=== PATIENT | female | born 1980 | race Caucasian/White ===

== ENCOUNTER 2017-09-23 14:35 | Emergency (ER) | payer MEDICAID ==
[~2017-09-23] VITALS: Ht 170.2 cm; Wt 93.0 kg
[2017-09-23 14:53] VITALS: BP 144/79; PULSE 127; RESP 20; O2SAT 97
[2017-09-23 15:09] VITALS: BP 144/79; PULSE 125; RESP 18; O2SAT 98
[2017-09-23] MEDS ORDERED: LORazepam 2 MG/ML VIAL IV PUSH ONE (15:15)
[2017-09-23] MEDS ORDERED: SODIUM CHLOR 0.9% 1000 ML INJ 1,000 ML IV ONE (15:15)
--- NOTE | 2017-09-23 15:16 | PD ---
HPI Chief Complaint: Chest Pain Time Seen by Provider: 15:06 Travel History International Travel<30 days: No Contact w/Intl Traveler<30days: No Traveled to known affect area: No History of Present Illness HPI 37-year-old female with PMH of anxiety presents to the ED via EMS for evaluation of 20 minute history of palpitations, shortness of breath. Onset while the patient was smoking a cigarette. Patient endorses accompanying nausea. She denies diaphoresis, chest pain. She states that she has otherwise been feeling well. She states that she took a dose of Seroquel about an hour before onset of symptoms. She states that she took this because she "wanted to take a nap while everyone was gone." She denies illicit drug use. Denies other stimulant use. Denies familial history of ND. PFSH Past Medical History Hx Anticoagulant Therapy: No Cardiovascular Problems: No Chemotherapy: No Cerebrovascular Accident: No Diabetes: No Respiratory: No ?: Not LMP: May 2017 Past Surgical History Hysterectomy: No Social History Tobacco Use: Yes Allergies-Medications (Allergen,Severity, Reaction): Coded Allergies: diphenhydramine (Verified Allergy, Unknown, 09/23/17) "feel skin crawling" Reported Meds & Prescriptions Reported Meds & Active Scripts Active Reported Suboxone Sublingual Film (Buprenorphine-Naloxone Sublingual Film) 8-2 Mg Film 1 Film SL Unique ID number required: Seroquel (Quetiapine Fumarate) 100 Mg Tab 300 Mg PO BID PRN Effexor XR 24 HR (Venlafaxine HCl) 150 Mg Cap 150 Mg PO DAILY Review of Systems Except as stated in HPI: all other systems reviewed are Neg Physical Exam Narrative GENERAL: Well-nourished, well-developed anxious white female no acute distress. SKIN: Focused skin assessment warm/dry. HEAD: Normocephalic. EYES: No scleral icterus. No injection or drainage. NECK: Supple, trachea midline. No JVD or lymphadenopathy. CARDIOVASCULAR: Tachycardic. Regular rate and rhythm without murmurs, gallops, or rubs. RESPIRATORY: Breath sounds clear and equal bilaterally. No accessory muscle use. GASTROINTESTINAL: Abdomen soft, non-tender, nondistended. Active bowel sounds. MUSCULOSKELETAL: No cyanosis, or edema. BACK: Nontender without obvious deformity. No CVA tenderness. Data Data Last Documented VS Vital Signs Date Time Temp Pulse Resp B/P (MAP) Pulse Ox O2 Delivery O2 Flow Rate FiO2 09/23/17 18:49 100 16 116/85 (95) 100 09/23/17 15:18 Room Air Orders Orders Electrocardiogram (09/23/17 15:06) Ckmb (Isoenzyme) Profile (09/23/17 15:06) Complete Blood Count With Diff (09/23/17 15:06) Comprehensive Metabolic Panel (09/23/17 15:06) Magnesium (Mg) (09/23/17 15:06) Prothrombin Time / Inr (Pt) (09/23/17 15:06) Act Partial Throm Time (Ptt) (09/23/17 15:06) Troponin I (09/23/17 15:06) Ecg Monitoring (09/23/17:) Bilateral Bp Monitoring (09/23/17 15:06) Iv Access Insert/Monitor (09/23/17 15:06) Oximetry (09/23/17 15:06) Chest, Pa & Lat (09/23/17 15:06) Drug Screen, Random Urine (09/23/17 15:06) Sodium Chlor 0.9% 1000 Ml Inj (Ns 1000 M (09/23/17 15:15) Lorazepam Inj (Ativan Inj) (09/23/17 15:15) Ed Urine Pregnancytest Poc (09/23/17 15:21) CKMB (09/23/17 15:15) CKMB% (09/23/17 15:15) Potassium Chloride (Kcl) (09/23/17 16:15) Calcium Carbonate (Oscal) (09/23/17 17:00) Ed Discharge Order (09/23/17 18:36) Labs Laboratory Tests Test 09/23/17 15:15 White Blood Count 7.4 TH/MM3 Red Blood Count 4.76 MIL/MM3 Hemoglobin 13.4 GM/DL Hematocrit 39.3 % Mean Corpuscular Volume 82.7 FL Mean Corpuscular Hemoglobin 28.1 PG Mean Corpuscular Hemoglobin Concent 33.9 % Red Cell Distribution Width 13.5 % Platelet Count 220 TH/MM3 Mean Platelet Volume 7.6 FL Neutrophils (%) (Auto) 58.1 % Lymphocytes (%) (Auto) 32.6 % Monocytes (%) (Auto) 7.3 % Eosinophils (%) (Auto) 1.3 % Basophils (%) (Auto) 0.7 % Neutrophils # (Auto) 4.3 TH/MM3 Lymphocytes # (Auto) 2.4 TH/MM3 Monocytes # (Auto) 0.5 TH/MM3 Eosinophils # (Auto) 0.1 TH/MM3 Basophils # (Auto) 0.1 TH/MM3 CBC Comment DIFF FINAL Differential Comment Prothrombin Time 9.4 SEC Prothromb Time International Ratio 0.9 RATIO Activated Partial Thromboplast Time 25.9 SEC Blood Urea Nitrogen 10 MG/DL Creatinine 0.92 MG/DL Random Glucose 184 MG/DL Total Protein 6.6 GM/DL Albumin 3.4 GM/DL Calcium Level 7.9 MG/DL Magnesium Level 1.9 MG/DL Alkaline Phosphatase 94 U/L Aspartate Amino Transf (AST/SGOT) 22 U/L Alanine Aminotransferase (ALT/SGPT) 29 U/L Total Bilirubin 0.2 MG/DL Sodium Level 140 MEQ/L Potassium Level 3.4 MEQ/L Chloride Level 106 MEQ/L Carbon Dioxide Level 24.3 MEQ/L Anion Gap 10 MEQ/L Estimat Glomerular Filtration Rate 68 ML/MIN Total Creatine Kinase 105 U/L Creatine Kinase MB 0.8 NG/ML Troponin I LESS THAN 0.02 NG/ML Urine Opiates Screen NEG Urine Barbiturates Screen NEG Urine Amphetamines Screen NEG Urine Benzodiazepines Screen NEG Urine Cocaine Screen NEG Urine Cannabinoids Screen NEG MDM Medical Decision Making Medical Screen Exam Complete: Yes Emergency Medical Condition: Yes Differential Diagnosis Anxiety versus ACS versus dysrhythmia versus PE versus other Narrative Course 37-year-old female with PMH of anxiety presents to the ED via EMS for evaluation of 20 minute history of palpitations, shortness of breath. Onset while the patient was smoking a cigarette. Patient endorses accompanying nausea. She denies diaphoresis, chest pain. She states that she has otherwise been feeling well. She states that she took a dose of Seroquel about an hour before onset of symptoms. She denies illicit drug use, stimulant use. Denies familial history of ND. Patient is tachycardic, anxious appearing on presentation. On exam the chest is clear, abdomen soft and nontender. No lower extremity edema. IV was established. Patient was administered 1 L normal saline, 1 g of Ativan. EKG rate 131, sinus tachycardia. AZ interval 144, QRS 82, QTC 462. Normal axis. No acute ST changes. Reviewed by Dr. Rust. CXR: Mild elevation of the right hemidiaphragm. Otherwise no acute cardiopulmonary process. CBC and coags unremarkable. Mild deficits of potassium and calcium on the CMP. This was replaced orally. Tox screen negative. Patient monitored in the ED for several hours. She reports resolution of her symptoms. Heart rate at 100. Dr. Rust discussed the workup and plan for discharge with the patient who is agreeable. She is instructed to follow-up with the primary care provider. She is stable and discharged home. Diagnosis Primary Impression: Palpitations Additional Impressions: Anxiety Hypocalcemia Hypokalemia Referrals: Primary Care Physician Patient Instructions: General Instructions, Heart Palpitations (ED) Additional Instructions: Rest, hydrate. Stop smoking! Eat a varied diet. Take a daily multivitamin. Resume at home medications as previously prescribed. Follow up with the primary care provider. Return to the ED for worsening symptoms or any urgent/ emergent medical condition. Disposition: 01 DISCHARGE HOME Condition: Stable Nichole Maynard September 23, 2017 15:16
[2017-09-23 15:18] VITALS: BP 133/63; PULSE 124; RESP 17; O2SAT 98
[2017-09-23 15:36] LABS: AUTOMATED NEUTROPHIL # 4.3 TH/MM3 (1.8-7.7); BASOPHIL # 0.1 TH/MM3 (0-0.2); BASOPHIL % 0.7 % (0.0-2.0); EOSINOPHIL # 0.1 TH/MM3 (0-0.4); EOSINOPHIL % 1.3 % (0.0-4.0); HEMATOCRIT 39.3 % (35.0-46.0); HEMOGLOBIN 13.4 GM/DL (11.6-15.3); LYMPH % 32.6 % (9.0-44.0); LYMPHOCYTE # 2.4 TH/MM3 (1.0-4.8); MEAN CELL VOLUME 82.7 FL (80.0-100.0); MEAN CORPUSCULAR HEMOGLOBIN 28.1 PG (27.0-34.0); MEAN CORPUSCULAR HGB CONC 33.9 % (32.0-36.0); MEAN PLATELET VOLUME 7.6 FL (7.0-11.0); MONO % 7.3 % (0.0-8.0); MONOCYTE # 0.5 TH/MM3 (0-0.9); NEUT % 58.1 % (16.0-70.0); PLATELET COUNT 220 TH/MM3 (150-450); RED BLOOD COUNT 4.76 MIL/MM3 (4.00-5.30); RED CELL DISTRIBUTION WIDTH 13.5 % (11.6-17.2); WHITE BLOOD COUNT 7.4 TH/MM3 (4.0-11.0)
[2017-09-23 15:47] LABS: INTERNATIONAL NORMALIZED RATIO 0.9 RATIO; PROTHROMBIN TIME - PATIENT 9.4 SEC (9.8-11.6)
[2017-09-23 15:49] LABS: ALBUMIN 3.4 GM/DL (3.4-5.0); AST (GOT) 22 U/L (15-37); BICARBONATE 24.3 MEQ/L (21.0-32.0); BLOOD UREA NITROGEN 10 MG/DL (7-18); CALCIUM 7.9 MG/DL (8.5-10.1); CHLORIDE 106 MEQ/L (98-107); CREATININE 0.92 MG/DL (0.50-1.00); GLOMERULAR FILTRATION RATE 68 ML/MIN (>89); GLUCOSE,RANDOM 184 MG/DL (74-106); MAGNESIUM 1.9 MG/DL (1.5-2.5); SODIUM (NA) 140 MEQ/L (136-145)
[2017-09-23 15:52] LABS: ALKALINE PHOSPHATASE 94 U/L (45-117); ALT (GPT) 29 U/L (10-53); TOTAL BILIRUBIN ADULT 0.2 MG/DL (0.2-1.0); TOTAL PROTEIN 6.6 GM/DL (6.4-8.2); TROPONIN I LESS THAN 0.02 NG/ML (0.02-0.05)
--- NOTE | 2017-09-23 16:00 | RADRPT ---
EXAM DATE/TIME: 09/23/2017 15:56 [facility] COMPARISON: No previous studies available for comparison. INDICATIONS : Chest pain. MEDICAL HISTORY : None. SURGICAL HISTORY : None. ENCOUNTER: Initial ACUITY: 1 day PAIN SCORE: 0/10 LOCATION: Bilateral chest FINDINGS: PA and lateral views of the chest demonstrate mild elevation of the right hemidiaphragm. Lungs are ot herwise clear. Heart size is normal. Surgical clips in the right upper abdominal quadrant are charact eristic of prior cholecystectomy. Osseous structures are intact. CONCLUSION: Mild elevation of the right hemidiaphragm. Otherwise, no acute cardiopulmonary process. Nicolas Mukherjee MD on September 23, 2017 at 15:56 Board Certified Radiologist. This report was verified electronically.
[2017-09-23] MEDS ORDERED: EFFE150C PO (16:09)
[2017-09-23] MEDS ORDERED: SERO100T PO (16:09)
[2017-09-23] MEDS ORDERED: SUBO8MIS SL (16:10)
[2017-09-23] MEDS ORDERED: POTASSIUM CHLORIDE 20 MEQ CONTROLLED RELEASE TAB PO ONE (16:15)
[2017-09-23 16:32] VITALS: BP 130/65; PULSE 108; RESP 16; O2SAT 96
[2017-09-23] MEDS ORDERED: CALCIUM CARBONATE 1.25 GM (CA 500 MG) TAB PO ONE (17:00)
--- NOTE | 2017-09-23 18:16 | PD ---
Data Data Last Documented VS Vital Signs Date Time Temp Pulse Resp B/P (MAP) Pulse Ox O2 Delivery O2 Flow Rate FiO2 09/23/17 16:32 108 16 130/65 (86) 96 09/23/17 15:18 Room Air Orders Orders Electrocardiogram (09/23/17 15:06) Ckmb (Isoenzyme) Profile (09/23/17 15:06) Complete Blood Count With Diff (09/23/17 15:06) Comprehensive Metabolic Panel (09/23/17 15:06) Magnesium (Mg) (09/23/17 15:06) Prothrombin Time / Inr (Pt) (09/23/17 15:06) Act Partial Throm Time (Ptt) (09/23/17 15:06) Troponin I (09/23/17 15:) Ecg Monitoring (09/23/17 15:06) Bilateral Bp Monitoring (09/23/17 15:06) Iv Access Insert/Monitor (09/23/17 15:06) Oximetry (09/23/17 15:06) Chest, Pa & Lat (09/23/17 15:06) Drug Screen, Random Urine (09/23/17 15:06) Sodium Chlor 0.9% 1000 Ml Inj (Ns 1000 M (09/23/17 15:15) Lorazepam Inj (Ativan Inj) (09/23/17 15:15) Ed Urine Pregnancytest Poc (09/23/17 15:21) CKMB (09/23/17 15:15) CKMB% (09/23/17 15:15) Potassium Chloride (Kcl) (09/23/17 16:15) Calcium Carbonate (Oscal) (09/23/17 17:00) Labs Laboratory Tests Test 09/23/17 15:15 White Blood Count 7.4 TH/MM3 Red Blood Count 4.76 MIL/MM3 Hemoglobin 13.4 GM/DL Hematocrit 39.3 % Mean Corpuscular Volume 82.7 FL Mean Corpuscular Hemoglobin 28.1 PG Mean Corpuscular Hemoglobin Concent 33.9 % Red Cell Distribution Width 13.5 % Platelet Count 220 TH/MM3 Mean Platelet Volume 7.6 FL Neutrophils (%) (Auto) 58.1 % Lymphocytes (%) (Auto) 32.6 % Monocytes (%) (Auto) 7.3 % Eosinophils (%) (Auto) 1.3 % Basophils (%) (Auto) 0.7 % Neutrophils # (Auto) 4.3 TH/MM3 Lymphocytes # (Auto) 2.4 TH/MM3 Monocytes # (Auto) 0.5 TH/MM3 Eosinophils # (Auto) 0.1 TH/MM3 Basophils # (Auto) 0.1 TH/MM3 CBC Comment DIFF FINAL Differential Comment Prothrombin Time 9.4 SEC Prothromb Time International Ratio 0.9 RATIO Activated Partial Thromboplast Time 25.9 SEC Blood Urea Nitrogen 10 MG/DL Creatinine 0.92 MG/DL Random Glucose 184 MG/DL Total Protein 6.6 GM/DL Albumin 3.4 GM/DL Calcium Level 7.9 MG/DL Magnesium Level 1.9 MG/DL Alkaline Phosphatase 94 U/L Aspartate Amino Transf (AST/SGOT) 22 U/L Alanine Aminotransferase (ALT/SGPT) 29 U/L Total Bilirubin 0.2 MG/DL Sodium Level 140 MEQ/L Potassium Level 3.4 MEQ/L Chloride Level 106 MEQ/L Carbon Dioxide Level 24.3 MEQ/L Anion Gap 10 MEQ/L Estimat Glomerular Filtration Rate 68 ML/MIN Total Creatine Kinase 105 U/L Creatine Kinase MB 0.8 NG/ML Troponin I LESS THAN 0.02 NG/ML Urine Opiates Screen NEG Urine Barbiturates Screen NEG Urine Amphetamines Screen NEG Urine Benzodiazepines Screen NEG Urine Cocaine Screen NEG Urine Cannabinoids Screen NEG MDM Supervised Visit with TAIWO: Yes Narrative Course I, Dr. Rust, have reviewed the advance practice practitioner's documentation and am in agreement, met with the patient face to face, made the diagnosis, and the medical decision making was done by me. *My assessment and Findings: Patient had some sinus tachycardia and palpitations. Not having actual chest pain. So far extensive workup is been negative. Her heart rate is down to 100. Anticipate discharge soon. Sekou Rust MD September 23, 2017 18:15
[2017-09-23 18:49] VITALS: BP 116/85
--- NOTE | 2017-09-24 18:33 | EKG ---
Date Performed: 09/23/2017 Time Performed: 15:02:10 PTAGE: 37 years EKG: SINUS TACHYCARDIA NONSPECIFIC ST & T-WAVE ABNORMALITY ABNORMAL RHYTHM ECG NO PREVIOUS TRACING DOCTOR: Arturo Howell Interpretating Date/Time 09/24/2017 18:31:40
== END 2017-09-23 19:52 | disposition home or self-care (01) ==
LOC: NEPC 14:35
DX: R00.0 Tachycardia, unspecified (principal); F41.9 Anxiety disorder, unspecified; E83.51 Hypocalcemia; E87.6 Hypokalemia; F17.210 Nicotine dependence, cigarettes, uncomplicated; Z79.899 Other long term (current) drug therapy
CPT/HCPCS: 71046; 80053; 80307; 82550; 82552; 83735; 84484; 84703; 85025; 85610; 85730; 93005; 96361; 96374; 99285; J2060; J7030

== ENCOUNTER 2017-10-24 20:03 | Emergency (ER) | payer MEDICAID ==
[~2017-10-24] VITALS: Ht 165.1 cm; Wt 72.0 kg
[~2017-10-24 20:03] MED LIST: EFFE150C PO; SERO100T PO; SUBO8MIS SL
[2017-10-24 20:38] VITALS: BP 137/68; PULSE 91; RESP 16; TEMP 98.1; O2SAT 98
[2017-10-24] MEDS ORDERED: LORazepam 2 MG/ML VIAL IV PUSH ONE (20:45)
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
[2017-10-24] MEDS ORDERED: VIST50CA PO (21:44)
== END 2017-10-24 21:54 | disposition home or self-care (01) ==
LOC: NEPD 20:03
DX: F41.0 Panic disorder [episodic paroxysmal anxiety] (principal); Z72.0 Tobacco use
CPT/HCPCS: 96374; 99284; J2060

== ENCOUNTER 2017-11-12 14:21 | Inpatient (IN) ==
[2017-11-12] MEDS ORDERED: HYDROmorphone PF Inj 2 MG/ML Vial ONE (23:00)
[2017-11-13] MEDS: Ketorolac Inj 30 MG/ML (IVP) Vial IV.PUSH SCH ×4 (02:52→20:24)
[2017-11-13] MEDS: Piperacil/Tazo 3.375 GM Premix 50 ML IV.SIG SCH ×5 (02:54→20:24)
[2017-11-13] MEDS: HYDROmorphone PF Inj 2 MG/ML Vial IV.PUSH PRN ×4 (03:33→22:04)
[2017-11-13] MEDS: Vancomycin Inj 1,000 MG in Sodium Chlor 0.9% Inj 250 ML IV.SIG SCH ×2 (03:34→16:17)
[2017-11-13] MEDS: Sod Chloride 0.9% Inj 1,000 ML IV.CONT SCH ×3 (03:49→22:05)
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
[2017-11-13] MEDS: Venlafaxine XR 75 MG Capsule PO SCH (11:03)
[2017-11-13 12:53] LABS: Baso # (Auto) 0.1 th/mm3 (0.0-0.2); Baso % (Auto) 0.6 % (0.0-2.0); Eos # (Auto) 0.2 th/mm3 (0.0-0.4); Eos % (Auto) 1.6 % (0.0-4.0); Hematocrit 35.1 % (35.0-46.0); Hemoglobin 11.8 gm/dL (11.6-15.3); Lymph # (Auto) 2.3 th/mm3 (1.0-4.8); Lymph % (Auto) 20.8 % (9.0-44.0); Mean Corpuscular HGB Conc 33.6 % (32.0-36.0); Mean Corpuscular Hemoglobin 27.6 pg (27.0-34.0); Mean Corpuscular Volume 82.1 fL (80.0-100.0); Mean Platelet Volume 7.7 fL (7.0-11.0); Mono # (Auto) 0.9 th/mm3 (0.0-0.9); Mono % (Auto) 7.9 % (0.0-8.0); Neut # (Auto) 7.5 th/mm3 (1.8-7.7); Neut % (Auto) 69.1 % (16.0-70.0); Platelet Count 251 th/mm3 (150-450); Red Blood Count 4.28 mil/mm3 (4.00-5.30); Red Cell Distribution Width 13.7 % (11.6-17.2); White Blood Count 10.9 th/mm3 (4.0-11.0)
[2017-11-13] MEDS: Zolpidem Tartrate 5 MG Tablet PO PRN (20:26)
[2017-11-14] MEDS: Ketorolac Inj 30 MG/ML (IVP) Vial IV.PUSH SCH ×3 (01:22→14:09)
[2017-11-14] MEDS: HYDROmorphone PF Inj 2 MG/ML Vial IV.PUSH PRN ×5 (02:10→21:41)
[2017-11-14] MEDS: Piperacil/Tazo 3.375 GM Premix 50 ML IV.SIG SCH ×4 (02:11→21:37)
[2017-11-14] MEDS: Vancomycin Inj 1,000 MG in Sodium Chlor 0.9% Inj 250 ML IV.SIG SCH ×2 (03:07→16:36)
[2017-11-14] MEDS: Sod Chloride 0.9% Inj 1,000 ML IV.CONT SCH (06:11)
[2017-11-14] MEDS: Venlafaxine XR 75 MG Capsule PO SCH (08:45)
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
[2017-11-14] MEDS: Zolpidem Tartrate 5 MG Tablet PO PRN (21:36)
[2017-11-15] MEDS: Piperacil/Tazo 3.375 GM Premix 50 ML IV.SIG SCH ×4 (03:47→20:16)
[2017-11-15] MEDS: HYDROmorphone PF Inj 2 MG/ML Vial IV.PUSH PRN ×6 (03:47→23:31)
[2017-11-15] MEDS: Sod Chloride 0.9% Inj 1,000 ML IV.CONT SCH ×4 (03:48→15:14)
[2017-11-15] MEDS: Vancomycin Inj 1,000 MG in Sodium Chlor 0.9% Inj 250 ML IV.SIG SCH ×2 (06:57→15:20)
[2017-11-15] MEDS: Venlafaxine XR 75 MG Capsule PO SCH (08:19)
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
[2017-11-15] MEDS ORDERED: Piperacil/Tazo 3.375 GM Premix 50 ML IV.SIG SCH (17:45)
[2017-11-15] MEDS: Zolpidem Tartrate 5 MG Tablet PO PRN (21:18)
[2017-11-16] MEDS: Piperacil/Tazo 3.375 GM Premix 50 ML IV.SIG SCH ×2 (03:09→08:10)
[2017-11-16] MEDS: Vancomycin Inj 1,000 MG in Sodium Chlor 0.9% Inj 250 ML IV.SIG SCH (04:20)
[2017-11-16] MEDS: Venlafaxine XR 75 MG Capsule PO SCH (08:39)
--- NOTE | 2017-11-16 09:21 | P.PN ---
Subjective Interval history: Subjective: Patient reports that overall her pain is controlled although she does have pain with the dressing changes. She denies any fever, chills, nausea , vomiting. She is tolerating a regular diet. She is eager to go home. She has no other concerns or complaints today. Objective: VSSA F Alert and oriented 3, no acute distress CTA B RRR Soft, nontender, nondistended, normoactive bowel sounds Calves nontender : exudate significantly improved since yesterday, induration resolved, cellulitis resolved Assessment/plan: 1. Labial abscess with MRSA: Labial abscess was I&D and the patient is received IV vancomycin and Zosyn. Her cellulitis has resolved as has the induration. The exudate has significantly improved since yesterday. Labial abscess area appears to be healing and the patient was counseled extensively on packing. She will continue Bactrim p.o. twice daily 10 days 2. Pain control: Patient is given a prescription for Dilaudid 3. Tobacco use 4. Follow-up: Patient has poor ability to follow-up with a private physician so we will have patient follow-up in 1 week or sooner if needed Physical Exam Vital signs: Vital Signs 11/15/17 11:55 11/15/17 13:26 11/15/17 16:00 Temperature 98.9 F 98.2 F 98.4 F Pulse Rate 54 L 68 61 Respiratory Rate 55 H 18 20 Blood Pressure 134/63 148/81 H 124/63 Pulse Oximetry 95 97 11/15/17 20:00 11/16/17 00:00 11/16/17 04:00 Temperature 98.3 F 98.1 F 98.2 F Pulse Rate 70 54 L 68 Respiratory Rate 20 20 20 Blood Pressure 131/71 129/62 113/59 L Pulse Oximetry 98 98 94 L 11/16/17 08:00 11/16/17 09:18 Temperature 98 F Pulse Rate 53 L Respiratory Rate 21 18 Blood Pressure 138/63 Pulse Oximetry 96 Intake & Output 11/15/17 11/16/17 11/16/17 18:59 06:59 18:59 Intake Total 600 / 600 830 / 830 Balance 600 / 600 830 / 830 Weight 92 kg Intake: IV 600 / 600 350 / 350 Zosyn 3.375 GM Premix 50 ML @ 100 / 100 100 / 100 100 mls/hr IV.SIG Q6H JASON Rx#: [id number] Vancomycin Inj 1,000 MG In NS 500 / 500 250 / 250 Inj 250 ML @ 250 mls/hr IV.SIG Q12H JASON Rx#:[id number] Oral 480 / 480 Other: # Voids 6 3 Date of Last Bowel Movement 11/14/17 11/14/17 Weight On Admission 92 kg - Urinary Catheter Management Indwelling Urethral Catheter Cath placed during this visit: yes, but has since been removed by the nurse Urethral indwelling: No Reason for continuing: Decision to DC catheter Insertion date: 11/12/17 Removal date: 11/14/17 Removal time: 15:20 Results - Labs CBC & Chem 7: 11/13/17 12:37 11/12/17 08:56
== END 2017-11-16 13:15 | disposition home or self-care (01) ==
LOC: NEDA 14:21 → NEPGCP 17:54 → N03 11-15 13:00 → UNDODISIN 11-15 17:13
PROVIDERS: ADMIT Obstetrics & Gynecology; ATTEND Obstetrics & Gynecology